=== PATIENT | female | born 1950 | race Caucasian/White ===

== ENCOUNTER 2018-07-24 21:15 | Inpatient (IN) | payer MEDICARE, OTHER ==
[~2018-07-24] VITALS: Ht 162.6 cm; Wt 102.0 kg
[2018-07-24 21:45] LABS: Calcium, Ionized (POC) 1.06 mmol/L (1.10-1.46); Chloride (POC) 106 mmol/L (98-108); Creatinine (POC) 5.4 mg/dL (0.6-1.0); Glucose (ISTAT POC) 104 mg/dL (70-99); Hemoglobin (POC) 7.5 g/dL (12.0-16.0); Potassium (POC) 4.6 mmol/L (3.5-5.5); Sodium (POC) 141 mmol/L (135-148); Total CO2 (POC) 22 mmol/L (21-32)
[2018-07-24 22:05] LABS: BASOPHILS ABSOLUTE AUTO 0.03 K/mm3 (0.00-0.23); BASOPHILS PERCENT AUTO 1 % (0-2); EOSINOPHILS ABSOLUTE AUTO 0.09 K/mm3 (0.00-0.68); EOSINOPHILS PERCENT AUTO 1 % (0-6); Hematocrit 27.8 % (33.0-51.0); Hemoglobin 8.3 g/dL (11.5-16.0); IMMATURE GRAN ABSOLUTE AUTO 0.03 K/mm3 (0.00-0.10); IMMATURE GRAN PERCENT AUTO 1 % (0-1); LYMPHOCYTES ABSOLUTE AUTO 2.32 K/mm3 (0.84-5.20); LYMPHOCYTES PERCENT AUTO 35 % (21-46); MONOCYTES ABSOLUTE AUTO 0.45 K/mm3 (0.16-1.47); MONOCYTES PERCENT AUTO 7 % (4-13); Mean Corpuscular HGB 29.1 pg (26.0-34.0); Mean Corpuscular HGB Conc 29.9 g/dL (31.5-36.5); Mean Corpuscular Volume 98 fL (80-100); Mean Platelet Volume 12.4 fL (9.1-12.4); NEUTROPHILS ABSOLUTE AUTO 3.71 K/mm3 (1.96-9.15); NEUTROPHILS PERCENT AUTO 56 % (41-73); Platelet Count 173 K/mm3 (150-400); RDW Coefficient Variation 15.9 % (11.7-14.2); Red Blood Cell Count 2.85 M/mm3 (3.80-5.20); White Blood Cell Count 6.63 K/mm3 (4.00-11.30)
[2018-07-24 22:25] LABS: Albumin, Blood 2.9 g/dL (3.4-5.0); Albumin/Globulin Ratio 0.9 (0.8-1.8); Bilirubin, Total 0.3 mg/dL (0.1-1.0); Bun/Creatinine Ratio 24.2 (12.0-20.0); Calcium, Blood 8.9 mg/dL (8.5-10.1); Creatinine, Blood 5.61 mg/dL (0.40-1.00); Globulin, Blood 3.4 g/dL (2.2-4.0); Potassium, Blood 5.1 mmol/L (3.5-5.5); Total Protein, Blood 6.3 g/dL (6.4-8.2)
[2018-07-24 22:39] LABS: Source, Urine Voided
[2018-07-24 22:44] LABS: Bilirubin, Urine Neg (Neg); Blood, Urine Neg (Neg); Glucose Qualitative, Urine Neg (Neg); Ketones, Urine Neg (Neg); Leukocyte Esterase, Urine 1+ (Neg); Nitrite, Urine Neg (Neg); Protein, Urine 1+ (Neg); Urobilinogen, Urine NORM (Normal)
[2018-07-24 22:52] LABS: Amorphous Light (0-Heavy); Appearance, Urine Hazy (Clear); Bacteria Few /hpf; Color, Urine Yellow (P-Yellow); Red Blood Cells, Urine Not Seen /hpf (0-2); Squamous Epithelial Cells Mod /hpf (Few)
[2018-07-25] MEDS ORDERED: ALLO100 PO (01:52)
[2018-07-25] MEDS ORDERED: BUME2 PO (01:53)
[2018-07-25] MEDS ORDERED: CALC.25 PO (01:54)
[2018-07-25] MEDS ORDERED: SINEMET 25-1001 EACH PO (01:54)
[2018-07-25] MEDS ORDERED: CARV6.25 PO (01:55)
[2018-07-25] MEDS ORDERED: CHOL10002 PO (01:55)
[2018-07-25] MEDS ORDERED: CLON.5 PO (01:56)
[2018-07-25] MEDS ORDERED: GABA100 PO (01:56)
[2018-07-25] MEDS ORDERED: LOVA40 PO (01:57)
[2018-07-25] MEDS ORDERED: Omeprazole20 M1 PO (01:57)
[2018-07-25] MEDS ORDERED: TERA5 PO (01:58)
[2018-07-25] MEDS ORDERED: Requip0.5 MG PO (01:58)
[2018-07-25] MEDS ORDERED: CITA20 PO (01:59)
[2018-07-25] MEDS ORDERED: INSULANPEN SC (01:59)
[2018-07-25] MEDS ORDERED: INSU100I6 SC (02:00)
[2018-07-25] MEDS ORDERED: OXYC5 PO (02:01)
[2018-07-25] MEDS ORDERED: ONDA4 PO (02:02)
[2018-07-25] MEDS ORDERED: ACET325 PO (02:02)
[2018-07-25 05:31] LABS: Hemoglobin 7.9 g/dL (11.5-16.0)
[2018-07-25 05:34] LABS: Hematocrit 26.9 % (33.0-51.0); Mean Corpuscular HGB 29.6 pg (26.0-34.0); Mean Corpuscular HGB Conc 29.7 g/dL (31.5-36.5); Mean Corpuscular Volume 100 fL (80-100); Mean Platelet Volume 12.3 fL (9.1-12.4); Platelet Count 164 K/mm3 (150-400); RDW Coefficient Variation 15.8 % (11.7-14.2); RDW Standard Deviation 57.1 fL (35.1-46.3); White Blood Cell Count 6.21 K/mm3 (4.00-11.30)
[2018-07-25 06:05] LABS: Anion Gap 10 mmol/L (6-16); Blood Urea Nitrogen 133 mg/dL (8-24); Bun/Creatinine Ratio 23.8 (12.0-20.0); CO2, Blood 25 mmol/L (21-32); Chloride, Blood 106 mmol/L (98-108); Creatinine, Blood 5.58 mg/dL (0.40-1.00); Glomerular Filtration Rate 8 (60-); Glucose, Blood 99 mg/dL (70-99); Magnesium, Blood 2.2 mg/dL (1.6-2.4); Phosphorus, Blood 5.7 mg/dL (2.5-4.9); Potassium, Blood 5.1 mmol/L (3.5-5.5); Sodium, Blood 141 mmol/L (136-145)
[2018-07-25 06:30] LABS: Albumin, Blood 2.9 g/dL (3.4-5.0); Albumin/Globulin Ratio 0.9 (0.8-1.8); Bilirubin, Total 0.5 mg/dL (0.1-1.0); Bun/Creatinine Ratio 23.3 (12.0-20.0); Calcium, Blood 8.9 mg/dL (8.5-10.1); Creatinine, Blood 5.63 mg/dL (0.40-1.00); Globulin, Blood 3.2 g/dL (2.2-4.0); Potassium, Blood 5.2 mmol/L (3.5-5.5); Total Protein, Blood 6.1 g/dL (6.4-8.2)
[2018-07-25 06:32] LABS: Source, Urine Clean Catch
[2018-07-25 06:38] LABS: Bilirubin, Urine Neg (Neg); Blood, Urine Neg (Neg); Glucose Qualitative, Urine Neg (Neg); Ketones, Urine Neg (Neg); Leukocyte Esterase, Urine 2+ (Neg); Nitrite, Urine Neg (Neg); Protein, Urine 2+ (Neg); Specific Gravity, Urine 1.015 (1.003-1.022); Urobilinogen, Urine NORM (Normal)
[2018-07-25 06:47] LABS: Appearance, Urine Clear (Clear); Color, Urine Yellow (P-Yellow)
[2018-07-25 06:49] LABS: U Amphetamine Screen Not Detected; U Barbituate Screen Not Detected; U Benzodiazapine Screen DETECTED; U Buprenorphine Screen Not Detected; U Cannabinoids Screen Not Detected; U Cocaine Screen Not Detected; U Methadone Screen Not Detected; U Methamphetamine Screen Not Detected; U Opiates Screen Not Detected; U Oxycodone Screen Not Detected; U Phencyclidine Screen Not Detected; U Propoxyphene Screen Not Detected
[2018-07-25 06:51] LABS: Red Blood Cells, Urine Not Seen /hpf (0-2)
[2018-07-25 06:52] LABS: Bacteria Mod /hpf; Squamous Epithelial Cells Mod /hpf (Few)
[2018-07-25 06:53] LABS: Granular Casts 0-2 /lpf (0)
--- NOTE | 2018-07-25 08:22 | NUR ---
PATIENT WAS INCONTINENT WHEN SHW ARRIVED TO THE FLOOR. AND WAS FOUND TO HAVE 300 ML LEFT IN HER BLADDER. BEFORE RESCAN THIS MORNING PATIENT VOIDED 500 ML OUT; TOXICOLOGY SENT
--- NOTE | 2018-07-25 19:35 | NUR ---
PT IS A/O X3, PLEASANT AND COOPERATIVE, THE PT IS UP TO THE SIDE OF THE BED FOR HER MEALS AND T/O THE DAY, THE PT DENIED ANY PAIN T/O THE DAY, THE PT APPEARED TO BE BREATHING EASILY T/O THE DAY, THE PT WAS ABLE TO VOID AND EMPTY HER BLADDER DR. RAPP WAS NOTIFIED AND ORDER TO PLACE A [employer] CTHETER WAS HELD, FAMILY AND THE PTS ELECTRICIAN ELEVATOR MAINTENANCE WERE IN TO SEE HER TODAY, CALL LIGHT IN REACH, WILL CONTINUE TO MONITOR AND ASSESS FOR CHANGES
[2018-07-26 05:40] LABS: Hematocrit 26.1 % (33.0-51.0); Hemoglobin 7.5 g/dL (11.5-16.0)
[2018-07-26 06:04] LABS: Albumin, Blood 2.6 g/dL (3.4-5.0); Anion Gap 6 mmol/L (6-16); Blood Urea Nitrogen 114 mg/dL (8-24); Bun/Creatinine Ratio 23.8 (12.0-20.0); CO2, Blood 26 mmol/L (21-32); Calcium, Blood 8.4 mg/dL (8.5-10.1); Chloride, Blood 110 mmol/L (98-108); Creatinine, Blood 4.78 mg/dL (0.40-1.00); Glomerular Filtration Rate 10 (60-); Glucose, Blood 113 mg/dL (70-99); Magnesium, Blood 2.1 mg/dL (1.6-2.4); Phosphorus, Blood 4.6 mg/dL (2.5-4.9); Potassium, Blood 4.7 mmol/L (3.5-5.5); Sodium, Blood 142 mmol/L (136-145)
--- NOTE | 2018-07-26 19:25 | NUR ---
PT IS A/OX3, PLEASANT AND COOPERATIVE, THE PT IS BEDREST, THE PT APPEARED TO BE BREATHING EASILY ON RA T/O THE DAY, THE PT WAS GIVEN A UNIT OF PRBC'S THIS AM AND TOLERATED IT WELL, THIS EVENING THE PT C/O LEFT KNEE PAIN, A CALL WAS MADE TO DR. JARRETT AND THE PT WAS GOVEN OXYCODONE FOR PAIN X1 THIS SHIFT, PT IS ABLE TO MOVE UNASSITED IN THE BED AND IS ABLE TO DANGLE AT THE SIDE OF THE BED FOR MEALS, CALL LIGHT IN REACH, BED ALARM ON
[2018-07-27 05:20] LABS: Hematocrit 28.9 % (33.0-51.0); Hemoglobin 8.6 g/dL (11.5-16.0)
[2018-07-27 05:44] LABS: Albumin, Blood 2.7 g/dL (3.4-5.0); Anion Gap 8 mmol/L (6-16); Blood Urea Nitrogen 94 mg/dL (8-24); Bun/Creatinine Ratio 22.6 (12.0-20.0); CO2, Blood 25 mmol/L (21-32); Calcium, Blood 8.7 mg/dL (8.5-10.1); Chloride, Blood 108 mmol/L (98-108); Creatinine, Blood 4.16 mg/dL (0.40-1.00); Glomerular Filtration Rate 11 (60-); Glucose, Blood 109 mg/dL (70-99); Phosphorus, Blood 4.7 mg/dL (2.5-4.9); Potassium, Blood 4.9 mmol/L (3.5-5.5); Sodium, Blood 141 mmol/L (136-145)
--- NOTE | 2018-07-27 17:48 | NUR ---
SHIFT SUMMARY. A&OX4, W/C BOUND AT BASELINE, PT AWARE OF LIMITATIONS AND CALLS APPROPRIATLY, NO SAFETY CONCERNS. PT DENIES SOB, N/V, AND PAIN. CONTINUES WITH NS IV AT 50ML/HR. NO NEW CHANGES.
[2018-07-28 05:38] LABS: BASOPHILS ABSOLUTE AUTO 0.03 K/mm3 (0.00-0.23); BASOPHILS PERCENT AUTO 1 % (0-2); EOSINOPHILS ABSOLUTE AUTO 0.15 K/mm3 (0.00-0.68); EOSINOPHILS PERCENT AUTO 3 % (0-6); Hemoglobin 8.1 g/dL (11.5-16.0); IMMATURE GRAN ABSOLUTE AUTO 0.01 K/mm3 (0.00-0.10); IMMATURE GRAN PERCENT AUTO 0 % (0-1); LYMPHOCYTES ABSOLUTE AUTO 1.72 K/mm3 (0.84-5.20); LYMPHOCYTES PERCENT AUTO 31 % (21-46); MONOCYTES ABSOLUTE AUTO 0.52 K/mm3 (0.16-1.47); MONOCYTES PERCENT AUTO 9 % (4-13); Mean Corpuscular HGB 28.9 pg (26.0-34.0); Mean Corpuscular HGB Conc 28.9 g/dL (31.5-36.5); Mean Corpuscular Volume 100 fL (80-100); Mean Platelet Volume 11.5 fL (9.1-12.4); NEUTROPHILS ABSOLUTE AUTO 3.12 K/mm3 (1.96-9.15); NEUTROPHILS PERCENT AUTO 56 % (41-73); NRBC ABSOLUTE 0.02 K/mm3 (0.00-0.02); NRBC Auto 0.4 /100 WBC (0.0-0.2); Platelet Count 183 K/mm3 (150-400); RDW Coefficient Variation 17.6 % (11.7-14.2); RDW Standard Deviation 64.5 fL (35.1-46.3); White Blood Cell Count 5.55 K/mm3 (4.00-11.30)
--- NOTE | 2018-07-28 06:10 | NUR ---
SHIFT SUMMARY PT HAD SOME LEG DISCOMFORT EARLY IN SHIFT PT WAS TX PER EMAR WITH GOOD RESULT. PT SLEPT WELL T/O REMAINDER OF SHIFT. PT HAD NO COMPLAINTS OR ISSUES NOTED. PT IS CURRENTLY SLEEPING AND BREATHING EASY. CALLLIGHT IN REACH AND BED ALARM ON.
[2018-07-28 06:20] LABS: Albumin, Blood 2.5 g/dL (3.4-5.0); Anion Gap 8 mmol/L (6-16); Blood Urea Nitrogen 87 mg/dL (8-24); Bun/Creatinine Ratio 21.2 (12.0-20.0); CO2, Blood 23 mmol/L (21-32); Calcium, Blood 8.6 mg/dL (8.5-10.1); Chloride, Blood 109 mmol/L (98-108); Glomerular Filtration Rate 11 (60-); Glucose, Blood 101 mg/dL (70-99); Magnesium, Blood 1.9 mg/dL (1.6-2.4); Phosphorus, Blood 4.6 mg/dL (2.5-4.9); Potassium, Blood 4.8 mmol/L (3.5-5.5); Sodium, Blood 140 mmol/L (136-145)
--- NOTE | 2018-07-28 13:35 | NUR ---
Initial palliative care consult: Shelly is a 67 year old female from the [place] area who is followed by Dr. Caldwell. She was transferred here from the [facility] per Dr. Caldwell's recommendation and lack of bed availability at the [facility]. Shelly has a history of CKD stage 3-4, anemia, heart failure, COPD, gout, RLS, hyperlipidemia, depression, anxiety, osteoporosis, GERD, sleep apnea. She lives with her brother and [id number] and her kqyris-[id number]-hip is her paid caregiver. She reports she is feeling much better today and is likely going home. She rec'd a unit of PRBCs yesterday and she is currently receiving a unit of PRBCs at present. She states she is non-ambulatory at baseline and has a doug lift, wheel chair, motorized wheel chair and BSC at home. She reports she uses a [employer] transportation [employer] for transportation needs. She reports that she has all the equipment she needs at home and states that she is well cared for. Discussed code status and she is clear in her wishes that she would like to be a DNR. She states she has a POLST form on her fridge at home. Will contact Dr. Sam to get a DNR order in the EMR to match her wishes. She has no requests and denies needing anything at the present. Will contact the [place] POL[place] registry to see if pt has a copy of her POLST form on file there. She has never been on dialysis in the past and was able to avoid needing dialysis during this admission. She has an older sister who is a dialysis pt currently in [place]. Shelly is open to the option of dialysis in the future if needed.
[2018-07-28] MEDS ORDERED: Biscolax10 MG PR (15:19)
[2018-07-28] MEDS ORDERED: DOCU100 PO (15:20)
[2018-07-28] MEDS ORDERED: CEFP200 PO (15:20)
[2018-07-28] MEDS ORDERED: CULTURELLE1 EACH PO (15:21)
--- NOTE | 2018-07-28 18:50 | NUR ---
SHIFT SUMMARY. 1800 PT DISCHARGED HOME VIA [facility]SP[facility] TO HOME IN [place]. IV REMOVED. D/C PAPERWORK WAS FORGOTTEN BY PT, CAREGIVER KAYLEIGH NOTIFIED OF MEDICATION CHANGES AND DISCHARGE INSTRUCTIONS OVER THE PHONE. PT REVIECED 1 UNIT PRBC AND TOLERATED WELL. PT DENIED S/SX OF UTI. NO N/V, SOB. PT REPORTED PAIN TO L KNEE THAT WAS MANAGED WELL WITH ONE DOSE OF 5M OXYCODONE.
== END 2018-07-28 18:00 | disposition home health service (06) | DRG 683 ==
LOC: ER 21:15 → MEDS 22:51
PROVIDERS: Emergency Medicine; Family Medicine; Internal Medicine Nephrology; ADMIT Internal Medicine
PROC: 30233N1 Transfusion of Nonautologous Red Blood Cells into Peripheral Vein, Percutaneous Approach (ICD-10-PCS; principal; 2018-07-26)
DX: N17.9 Acute kidney failure, unspecified (principal); I50.22 Chronic systolic (congestive) heart failure; Z68.42 Body mass index [BMI] 45.0-49.9, adult; I13.0 Hypertensive heart and chronic kidney disease with heart failure and stage 1 through stage 4 chronic kidney disease, or unspecified chronic kidney disease; N25.81 Secondary hyperparathyroidism of renal origin; N18.4 Chronic kidney disease, stage 4 (severe); E87.5 Hyperkalemia; Z87.891 Personal history of nicotine dependence; D63.1 Anemia in chronic kidney disease; E11.22 Type 2 diabetes mellitus with diabetic chronic kidney disease; M10.9 Gout, unspecified; G25.81 Restless legs syndrome; M81.0 Age-related osteoporosis without current pathological fracture; K21.9 Gastro-esophageal reflux disease without esophagitis; F41.8 Other specified anxiety disorders; E11.42 Type 2 diabetes mellitus with diabetic polyneuropathy; E66.9 Obesity, unspecified; J44.9 Chronic obstructive pulmonary disease, unspecified; E86.1 Hypovolemia; E87.70 Fluid overload, unspecified; E88.09 Other disorders of plasma-protein metabolism, not elsewhere classified; Z79.4 Long term (current) use of insulin
CPT/HCPCS: 36415; 36430; 71045; 76770; 80047; 80053; 80069; 81001; 82947; 83735; 85014; 85018; 85025; 85027; 86850; 86900; 86901; 86923; 87086; 93005; 93010; 94660; 94762; 99285-25; J0696; J0881; J1650; J7030; J7050; P9016

== ENCOUNTER 2018-08-07 18:52 | Emergency (ER) | payer MEDICARE, OTHER ==
[~2018-08-07] VITALS: Ht 157.5 cm; Wt 108.9 kg
[~2018-08-07 18:52] MED LIST: ACET325 PO; ALLO100 PO; BUME2 PO; Biscolax10 MG PR; CALC.25 PO; CARV6.25 PO; CEFP200 PO; CHOL10002 PO; CITA20 PO; CLON.5 PO; CULTURELLE1 EACH PO; DOCU100 PO; GABA100 PO; INSU100I6 SC; INSULANPEN SC; LOVA40 PO; ONDA4 PO; OXYC5 PO; Omeprazole20 M1 PO; Requip0.5 MG PO; SINEMET 25-1001 EACH PO; TERA5 PO
== END 2018-08-07 21:47 | disposition left against medical advice (07) ==
LOC: ER 18:52
DX: Z53.21 Procedure and treatment not carried out due to patient leaving prior to being seen by health care provider (principal)
CPT/HCPCS: 99281

== ENCOUNTER 2018-08-20 14:35 | Inpatient (IN) | payer MEDICARE, OTHER ==
[~2018-08-20] VITALS: Ht 162.6 cm; Wt 99.4 kg
[~2018-08-20 14:35] MED LIST changes: -CLON.5 PO; +Hytrin1 MG PO; -LOVA40 PO; -OXYC5 PO; -Requip0.5 MG PO; +Ropinirole HCl1 MG PO; -TERA5 PO
[2018-08-20 15:15] LABS: BASOPHILS ABSOLUTE AUTO 0.02 K/mm3 (0.00-0.23); BASOPHILS PERCENT AUTO 0 % (0-2); EOSINOPHILS ABSOLUTE AUTO 0.02 K/mm3 (0.00-0.68); EOSINOPHILS PERCENT AUTO 0 % (0-6); Hematocrit 33.1 % (33.0-51.0); Hemoglobin 9.9 g/dL (11.5-16.0); IMMATURE GRAN ABSOLUTE AUTO 0.07 K/mm3 (0.00-0.10); IMMATURE GRAN PERCENT AUTO 1 % (0-1); LYMPHOCYTES ABSOLUTE AUTO 1.11 K/mm3 (0.84-5.20); LYMPHOCYTES PERCENT AUTO 15 % (21-46); MONOCYTES PERCENT AUTO 9 % (4-13); Mean Corpuscular HGB 27.7 pg (26.0-34.0); Mean Corpuscular HGB Conc 29.9 g/dL (31.5-36.5); Mean Corpuscular Volume 93 fL (80-100); Mean Platelet Volume 9.7 fL (9.1-12.4); NEUTROPHILS ABSOLUTE AUTO 5.72 K/mm3 (1.96-9.15); NEUTROPHILS PERCENT AUTO 75 % (41-73); Platelet Count 356 K/mm3 (150-400); RDW Coefficient Variation 16.7 % (11.7-14.2); RDW Standard Deviation 56.7 fL (35.1-46.3); Red Blood Cell Count 3.58 M/mm3 (3.80-5.20); White Blood Cell Count 7.64 K/mm3 (4.00-11.30)
[2018-08-20 15:33] LABS: Alanine Aminotransfer (ALT/SGP <6 U/L (12-78); Albumin, Blood 2.5 g/dL (3.4-5.0); Albumin/Globulin Ratio 0.5 (0.8-1.8); Alk Phos 72 U/L (50-136); Anion Gap 12 mmol/L (6-16); Aspartate Aminotrans (AST/SGOT 21 U/L (12-37); Bilirubin, Total 0.6 mg/dL (0.1-1.0); Blood Urea Nitrogen 166 mg/dL (8-24); Bun/Creatinine Ratio 24.2 (12.0-20.0); CO2, Blood 29 mmol/L (21-32); Calcium, Blood 8.8 mg/dL (8.5-10.1); Chloride, Blood 90 mmol/L (98-108); Creatinine, Blood 6.85 mg/dL (0.40-1.00); Globulin, Blood 4.6 g/dL (2.2-4.0); Glomerular Filtration Rate 6 (60-); Glucose, Blood 104 mg/dL (70-99); Potassium, Blood 4.3 mmol/L (3.5-5.5); Sodium, Blood 131 mmol/L (136-145); Total Protein, Blood 7.1 g/dL (6.4-8.2)
[2018-08-20] MEDS ORDERED: METO2.5 PO (16:16)
[2018-08-20] MEDS ORDERED: Prinivil10 MG PO (16:19)
[2018-08-20] MEDS ORDERED: Citalopram HBr40 MG PO (16:19)
[2018-08-20] MEDS ORDERED: INSDET100 SC (16:20)
--- NOTE | 2018-08-20 18:56 | NUR ---
ADMIT NOTE RECEIVED REPORT FROM MAHNAZ MORE RN IN ED. PT TO ROOM VIA [facility]IS DANIELen-GaugeELIZABETH AT 1818, 4 PERSON ASSIST WITH SLIDER SHEET. PT ORIENTED TO ROOM AND CALL LIGHT. PT STATES SHE WAS SENT OVER FROM DR RAPP'S DUE TO "ABNORMAL LABS". PT A&OX1. PLEASANTLY CONFUSED. PT RESTING IN BED, PT REPORTS NEEDING A [employer] LIFT AT HOME FOR TRANSFERS AND STATES SHE IS NOT ABLE TO SIT UP IN A CHAIR. BREATHING IS EVEN AND UNLABORED, >90% ON RA, LS DIM IN BASES. PT STATES SHE WEARS A CPAP AT HOME, NOTIFIED DR LION, NEW TELEPHONE ORDER FOR CPAP PROTOCOL ENTERED. PT DENIES PAIN AND N/V DURING SHIFT. PT REPORTS MASS IN ABD IN A HERNIA AND "DOSE NOT BOTHER ME". NS FROM ED GOING AT 200ML/HR. DR RAPP NOTIFED OF PROVIDER CONSULT, NEW ORDER FOR PROVIDER CONSULT FOR ORTHO ENTERED, NOT CALLED IN. PT REPROTS SHE LIVES WITH HER BROTHER AND [id number], AND THE MAGNUS IS HER CAREGIVER.VSS. NO OTHER ACUTE CHANGES NOTED DURING SHIFT. REPORT GIVEN TO ONCOMING RN.
[2018-08-20] MEDS ORDERED: LOVA40 PO (19:33)
[2018-08-20] MEDS ORDERED: Ropinirole HCl0.5 MG PO (19:33)
[2018-08-20] MEDS ORDERED: OXYC5 PO (19:34)
[2018-08-20] MEDS ORDERED: CLON.5 PO (19:34)
[2018-08-21 05:00] LABS: BASOPHILS ABSOLUTE AUTO 0.02 K/mm3 (0.00-0.23); BASOPHILS PERCENT AUTO 0 % (0-2); EOSINOPHILS ABSOLUTE AUTO 0.05 K/mm3 (0.00-0.68); EOSINOPHILS PERCENT AUTO 1 % (0-6); Hematocrit 29.7 % (33.0-51.0); Hemoglobin 8.9 g/dL (11.5-16.0); IMMATURE GRAN ABSOLUTE AUTO 0.04 K/mm3 (0.00-0.10); IMMATURE GRAN PERCENT AUTO 1 % (0-1); LYMPHOCYTES ABSOLUTE AUTO 1.46 K/mm3 (0.84-5.20); LYMPHOCYTES PERCENT AUTO 24 % (21-46); MONOCYTES ABSOLUTE AUTO 0.58 K/mm3 (0.16-1.47); MONOCYTES PERCENT AUTO 10 % (4-13); Mean Corpuscular HGB 27.8 pg (26.0-34.0); Mean Corpuscular Volume 93 fL (80-100); Mean Platelet Volume 9.4 fL (9.1-12.4); NEUTROPHILS ABSOLUTE AUTO 3.98 K/mm3 (1.96-9.15); NEUTROPHILS PERCENT AUTO 65 % (41-73); Platelet Count 319 K/mm3 (150-400); RDW Coefficient Variation 16.6 % (11.7-14.2); RDW Standard Deviation 56.8 fL (35.1-46.3); White Blood Cell Count 6.13 K/mm3 (4.00-11.30)
--- NOTE | 2018-08-21 05:30 | NUR ---
SHIFT SUMMARY PT HAS NO COMPLAINTS. PT WAS BLADDER SCANNED AND HAD 150 ML'S NOTED. PT ALSO VOIDED 350 VIA BED GREER. PT WENT TO SLEEP AFTER PM MEDS. PT HAS CPAP IN PLACE AND IS BREATHING EASY. PT CURRENTLY SLEEPING IN NO DISTRESS. CALL LIGHT IN REACH.
[2018-08-21 06:07] LABS: Alanine Aminotransfer (ALT/SGP <6 U/L (12-78); Albumin, Blood 2.2 g/dL (3.4-5.0); Albumin/Globulin Ratio 0.5 (0.8-1.8); Alk Phos 68 U/L (50-136); Anion Gap 12 mmol/L (6-16); Aspartate Aminotrans (AST/SGOT 21 U/L (12-37); Bilirubin, Total 0.4 mg/dL (0.1-1.0); Blood Urea Nitrogen 171 mg/dL (8-24); Bun/Creatinine Ratio 27.1 (12.0-20.0); CO2, Blood 28 mmol/L (21-32); Calcium, Blood 8.4 mg/dL (8.5-10.1); Chloride, Blood 95 mmol/L (98-108); Creatinine, Blood 6.32 mg/dL (0.40-1.00); Globulin, Blood 4.1 g/dL (2.2-4.0); Glomerular Filtration Rate 7 (60-); Glucose, Blood 118 mg/dL (70-99); Phosphorus, Blood 8.8 mg/dL (2.5-4.9); Potassium, Blood 3.9 mmol/L (3.5-5.5); Sodium, Blood 135 mmol/L (136-145); Total Protein, Blood 6.3 g/dL (6.4-8.2)
[2018-08-21 14:17] LABS: International Normalized Ratio 1.08; Prothrombin Time Results 11.4 Sec (9.7-11.5)
--- NOTE | 2018-08-21 16:59 | NUR ---
PATIENT HAS [facility]. UPON DISCHARGE PATIENT NEEDS A "RESUME HOME HEALTH" ORDER FAXED TO THE [facility] THAT THE PATIENT WAS CURRENTLY USING. THIS WAS CALLED IN TO CHARGE NURSE THIS AFTERNOON.
--- NOTE | 2018-08-21 18:33 | NUR ---
SHIFT SUMMARY PATIENT PLEASANT. NO ACUTE CONCERNS AT THIS TIME. SHE HAD AN ASPIRATION OF HER KNEE REQUESTED BY DR. RAPP FROM PREVIOUS CT. 40ML OF FLUID WAS REMOVED FROM THE KNEE, CULTURES PENDING AT THIS TIME.
[2018-08-22 04:27] LABS: Hematocrit 29.9 % (33.0-51.0); Hemoglobin 8.9 g/dL (11.5-16.0)
[2018-08-22 04:51] LABS: Albumin, Blood 2.7 g/dL (3.4-5.0); Anion Gap 11 mmol/L (6-16); CO2, Blood 29 mmol/L (21-32); Calcium, Blood 8.4 mg/dL (8.5-10.1); Chloride, Blood 96 mmol/L (98-108); Creatinine, Blood 5.31 mg/dL (0.40-1.00); Glomerular Filtration Rate 9 (60-); Glucose, Blood 146 mg/dL (70-99); Magnesium, Blood 1.7 mg/dL (1.6-2.4); Phosphorus, Blood 6.6 mg/dL (2.5-4.9); Sodium, Blood 136 mmol/L (136-145)
[2018-08-22 04:58] LABS: Blood Urea Nitrogen 163 mg/dL (8-24); Bun/Creatinine Ratio 30.7 (12.0-20.0)
--- NOTE | 2018-08-22 06:12 | NUR ---
SHIFT SUMMARY PT REMAINED IN BED THROUGHOUT THE NIGHT. TURNS SELF WELL IN BED BUT USES A LIFT AT HOME AT BASELINE FOR ASSISTANCE OOB. PT VOIDED WELL USING THE BEDPAN, NO EPISODES OF INCONTINENCE THIS EVENING. L KNEE SLIGHTLY SWOLLEN. HOWEVER PT DENIED PAIN AND SLEPT THROUGH MOST OF THE NIGHT. WORE CPAP ONCE READY FOR BED OTHERWISE ON RA. VITAL SIGNS STABLE THIS EVENING, INCLUDING BLOOD PRESSURE. NO ACUTE CHANGES THIS EVENING.
--- NOTE | 2018-08-22 17:29 | NUR ---
SHIFT SUMMARY NO CHANGES IN THE PATIENT TODAY DURING DAY SHIFT. SHE DID HAVE ONE DOSE OF INSULIN RELATED TO A CBG ABOVE 200. SHE WAS EDUCATED PRIOR TO ADMINISTRATION OF THE INSULIN AND WATCHED POST OT MAKE SURE SHE DID NOT EXHIBIT SIGNS OF HYPOGLYCEMIA AT THAT POINT. PATIENT DOES NOT NORMALLY TAKE INSULIN. SHE HAS SAT ON THE SIDE OF THE BED TODAY.
--- NOTE | 2018-08-23 05:59 | NUR ---
SHIFT SUMMARY PT DID NOT SLEEP WELL THIS EVENING. REPORTING THAT HER RESTLESS LEGS KEPT HER AWAKE MOST OF THE NIGHT. PT STATES THAT THIS HAPPENS FROM TIME TO TIME AT BASELINE WHERE HER LEGS ARE MORE PAINFUL. PT WORE CPAP MUCH OF THE NIGHT WHILE ATTEMPTING TO SLEEP. O2 SATS GREATER THAN 90%. PT CONTINENT, USED BEDPAN FOR VOIDING. PT BEDBOUND AT HOME, USES LIFT FOR TRANSFERS. OVERALL, PT HAD UNEVENTFUL NIGHT. VSS. WILL CONTINUE TO MONITOR AND REPORT TO DAY RN.
[2018-08-23 06:29] LABS: Albumin, Blood 2.6 g/dL (3.4-5.0); Anion Gap 10 mmol/L (6-16); CO2, Blood 30 mmol/L (21-32); Calcium, Blood 8.2 mg/dL (8.5-10.1); Chloride, Blood 99 mmol/L (98-108); Creatinine, Blood 4.11 mg/dL (0.40-1.00); Glomerular Filtration Rate 11 (60-); Glucose, Blood 137 mg/dL (70-99); Magnesium, Blood 1.6 mg/dL (1.6-2.4); Phosphorus, Blood 4.6 mg/dL (2.5-4.9); Potassium, Blood 3.7 mmol/L (3.5-5.5); Sodium, Blood 139 mmol/L (136-145)
[2018-08-23 06:52] LABS: Blood Urea Nitrogen 149 mg/dL (8-24); Bun/Creatinine Ratio 36.3 (12.0-20.0)
--- NOTE | 2018-08-23 17:22 | NUR ---
SHIFT SUMMARY MS. VENECIA SCOTT HAS BEEN VERY PLEASANT. NO ACUTE CONCERNS FROM HER AT THIS TIME. NO HYPOTENSION NOTED AND NO SYMPTOMS OF HYPOTENSION. PATIENT'S FLUIDS HAVE BEEN DROPPED TO 50ML/HR.
--- NOTE | 2018-08-24 05:03 | NUR ---
SHIFT SUMMARY PT SLEPT MUCH BETTER THIS EVENING AFTER RECIEVING ROXICODONE 5 MG BEFORE BEDTIME. PT HAS RESTLESS LEGS THAT HAVE BEEN CAUSING HER QUITE A BIT OF DISCOMFORT. ROXICODONE 5 MG VERY EFFECTIVE. PT REMAINED IN BED THROUGHOUT THE SHIFT, WHICH IS HER BASELINE. TURNS SELF WELL IN THE BED. CONTINENT THROUGHOUT THE NIGHT, TURNS EASILY FOR 1 ASSIST W/ A BEDPAN. WORE CPAP AT BEDTIME, OTHERWISE ON RA. NO ACUTE CHANGES THIS SHIFT. VSS. WILL CONTINUE TO MONITOR AND REPORT TO DAY RN.
[2018-08-24 05:31] LABS: Hematocrit 29.4 % (33.0-51.0); Hemoglobin 8.7 g/dL (11.5-16.0)
[2018-08-24 06:02] LABS: Albumin, Blood 2.4 g/dL (3.4-5.0); Anion Gap 9 mmol/L (6-16); Blood Urea Nitrogen 133 mg/dL (8-24); Bun/Creatinine Ratio 39.5 (12.0-20.0); CO2, Blood 29 mmol/L (21-32); Calcium, Blood 8.3 mg/dL (8.5-10.1); Chloride, Blood 103 mmol/L (98-108); Creatinine, Blood 3.37 mg/dL (0.40-1.00); Glomerular Filtration Rate 14 (60-); Glucose, Blood 113 mg/dL (70-99); Magnesium, Blood 1.4 mg/dL (1.6-2.4); Phosphorus, Blood 3.9 mg/dL (2.5-4.9); Potassium, Blood 3.6 mmol/L (3.5-5.5); Sodium, Blood 141 mmol/L (136-145)
--- NOTE | 2018-08-24 17:37 | NUR ---
ALERT. ORIENTED. TURNS SELF IN BED WHICH IS BASELINE. USES BEDPAN W/ONE PERSON ASSIST. LARGE UMBILICAL HERNIA. IV PATENT AND INFUSING. NO ACUTE DISTRESS NOTED. BED IN LOW POSITION. ABLE TO MAKE NEEDS KNOWN. WCTM.
--- NOTE | 2018-08-24 17:59 | NUR ---
Shelly is non-religous, but was open to encouragement and emotional affirmation. She smiles easily, and tells me she is greatful to doctor Javi for "saving my kidneys." She beleives she is healing and tells me she has no fears or concerns. I supported and affirmed her emotions. I will remain available.
--- NOTE | 2018-08-24 22:40 | NUR ---
PT MEDICATED PRN FOR CHRONIC R.ARM PAIN AND ACUTE L.LEG PAIN POST KNEE ASPIRATION, WILL ASSESS FOR EFFECT.
[2018-08-25 05:24] LABS: Hematocrit 29.6 % (33.0-51.0); Hemoglobin 8.6 g/dL (11.5-16.0)
[2018-08-25 05:50] LABS: Albumin, Blood 2.4 g/dL (3.4-5.0); Anion Gap 8 mmol/L (6-16); Blood Urea Nitrogen 120 mg/dL (8-24); Bun/Creatinine Ratio 44.6 (12.0-20.0); CO2, Blood 30 mmol/L (21-32); Calcium, Blood 8.8 mg/dL (8.5-10.1); Chloride, Blood 105 mmol/L (98-108); Creatinine, Blood 2.69 mg/dL (0.40-1.00); Glomerular Filtration Rate 19 (60-); Glucose, Blood 122 mg/dL (70-99); Magnesium, Blood 1.6 mg/dL (1.6-2.4); Phosphorus, Blood 3.4 mg/dL (2.5-4.9); Potassium, Blood 3.6 mmol/L (3.5-5.5); Sodium, Blood 143 mmol/L (136-145)
--- NOTE | 2018-08-25 06:15 | NUR ---
SUMMARY: PT IS A/OX4, SPECIFIES NEEDS AND IS ABLE TO REPOSITION W/MINIMAL ASSIST DESPITE BEING BED/CHAIRBOUND AND REQUIRING LIFT OOB. PT USES BEDPAN W/O ISSUE AND IS CONTINENT IF ENCOURAGED USE APPROX Q3H. LARGE UMBILICAL HERNIA OBSERVED AND OBESE ABDO NOTED. NS INFUSES AT 50 ML/HR. SPO2 WNL ON RA W/RESPS E/U AND TOLERATES CPAP W/CONT BIOX AT HS. SHE REPORTED ACUTE L.LEG PAIN POST KNEE ASPIRATION AND CHRONIC R.ARM PAIN, ROXICODONE PRN WAS PROVIDED FOR GOOD EFFECT. NO ACUTE CHANGES, VSS/AFEBRILE. WCTM AND REPORT TO DAY RN.
--- NOTE | 2018-08-25 17:18 | NUR ---
REVIEW D'C W/PATIENT. CALLED AND LEFT MESSAGE ON KAYLEIGH, CAREGIVERS, PHONE THAT SHE CAN CALL US AND GAVE FLOORS NUMBER. CALLED NIECE, JOSE, AT [phone] AND TALKED TO HER. SHE STS SHE WILL MAKE SURE BROTHER WHO LIVES W/PATIENT IS AT HOUSE AND STS CAREGIVER WILL MAKE FOLLOW UP APPTS. MARCIO NUMBER IS [phone]. HIGHLIGHTED ALL PERTINENT INFO ON INSTRUCTIONS. APPT HAS BEEN MADE FOR AND PATIENT AWARE TO CANCEL IF CAN NOT MAKE IT. CLOTHES PUT ON.WAITING [facility] CHAIR VAN. PT HAD EARLY DINNER.
--- NOTE | 2018-08-25 18:21 | NUR ---
USE LIFT TO GET PATIENT IN W/C. GOING TO [place].
== END 2018-08-25 18:21 | disposition home or self-care (01) | DRG 683 ==
LOC: ER 14:35 → MEDS 17:13
PROVIDERS: Emergency Medicine; Internal Medicine Nephrology; ADMIT Internal Medicine
PROC: 0S9D3ZX Drainage of Left Knee Joint, Percutaneous Approach, Diagnostic (ICD-10-PCS; principal; 2018-08-22)
DX: N17.0 Acute kidney failure with tubular necrosis (principal); E87.1 Hypo-osmolality and hyponatremia; I50.22 Chronic systolic (congestive) heart failure; I13.2 Hypertensive heart and chronic kidney disease with heart failure and with stage 5 chronic kidney disease, or end stage renal disease; E11.22 Type 2 diabetes mellitus with diabetic chronic kidney disease; Z79.4 Long term (current) use of insulin; J44.9 Chronic obstructive pulmonary disease, unspecified; D63.1 Anemia in chronic kidney disease; E78.5 Hyperlipidemia, unspecified; G47.33 Obstructive sleep apnea (adult) (pediatric); K21.9 Gastro-esophageal reflux disease without esophagitis; Z85.51 Personal history of malignant neoplasm of bladder; E83.42 Hypomagnesemia; M17.12 Unilateral primary osteoarthritis, left knee; N18.5 Chronic kidney disease, stage 5; E86.9 Volume depletion, unspecified; I95.9 Hypotension, unspecified; E88.09 Other disorders of plasma-protein metabolism, not elsewhere classified; Z87.891 Personal history of nicotine dependence; E83.39 Other disorders of phosphorus metabolism
CPT/HCPCS: 10030; 36415; 76770; 80053; 80069; 82947; 83735; 84100; 85014; 85018; 85025; 85610; 87070; 87075; 87205; 88108; 94660; 94762; 96360; 96361; 99284-25; J0881; J1644; J2405; J3475; J7030; P9046